=== PATIENT | female | born 1945 | race Caucasian/White ===

== ENCOUNTER 2018-03-25 16:31 | Emergency (ER) | payer MEDICARE ==
[~2018-03-25] VITALS: Ht 162.6 cm; Wt 54.4 kg
[~2018-03-25 16:31] MED LIST: AMARYL2 MG; AMBIEN 5 MG TABL5 M1; ATORVASTATIN CA40 MG PO; DIGOXIN125 MCG PO; GEMFIBROZIL 60600 MG; IRON325 PO; LOPRESSOR50; METFORMIN HCL500 MG PO; OMEPRAZOLE20 M2 PO; PRINIVIL20 MG PO; TOFRANIL50 MG PO; XANAX 0.5 MG0.5 MG
[2018-03-25 17:52] VITALS: BP 122/69
== END 2018-03-25 17:53 | disposition home or self-care (01) ==
LOC: M.ERS 16:31
DX: S51.811A Laceration without foreign body of right forearm, initial encounter (principal); S09.8XXA Other specified injuries of head, initial encounter; E11.9 Type 2 diabetes mellitus without complications; I10 Essential (primary) hypertension; F32.9 Major depressive disorder, single episode, unspecified; F41.9 Anxiety disorder, unspecified; Z88.2 Allergy status to sulfonamides; Z86.73 Personal history of transient ischemic attack (TIA), and cerebral infarction without residual deficits; W18.39XA Other fall on same level, initial encounter; Y93.89 Activity, other specified; Y92.89 Other specified places as the place of occurrence of the external cause; Y99.8 Other external cause status

== ENCOUNTER 2019-03-25 22:50 | Emergency (ER) | payer MEDICARE ==
[~2019-03-25] VITALS: Ht 154.9 cm; Wt 51.7 kg
[2019-03-25] MEDS ORDERED: DESIPRAMINE 50M50 M1 PO (23:06)
[2019-03-25] MEDS ORDERED: AMITRIPTYLINE H25 M4 PO (23:06)
[2019-03-25] MEDS ORDERED: ONDANSETRON ODT4 MG PO (23:07)
[2019-03-26 01:49] VITALS: BP 108/62
== END 2019-03-26 01:24 | disposition home or self-care (01) ==
LOC: M.ERS 22:50
DX: S01.81XA Laceration without foreign body of other part of head, initial encounter (principal); E11.9 Type 2 diabetes mellitus without complications; I10 Essential (primary) hypertension; F41.9 Anxiety disorder, unspecified; F32.9 Major depressive disorder, single episode, unspecified; F17.210 Nicotine dependence, cigarettes, uncomplicated; Z85.038 Personal history of other malignant neoplasm of large intestine; Z88.2 Allergy status to sulfonamides; Z88.6 Allergy status to analgesic agent; W18.39XA Other fall on same level, initial encounter; Y93.89 Activity, other specified; Y92.89 Other specified places as the place of occurrence of the external cause; Y99.8 Other external cause status